=== PATIENT | female | born 1985 | race Hispanic/Latino ===

== ENCOUNTER → 2021-04-28 | Outpatient (CLI) | payer OTHER ==
[~2021-04-28] MED LIST: ISOVUE-370 76% 100ML VIAL As Ordered ONE
--- NOTE | 2021-04-28 13:05 | REP ---
INDICATION: INFERTILITY. COMPARISON: None. TECHNIQUE: Cervix was catheterized by the referring clinician who injected contrast. I performed fluoroscopy. FINDINGS: Uterine cavity is well opacified with no contour abnormality or filling defect. There is passage of contrast through both fallopian tubes. There is no evidence of hydrosalpinx. There is bilateral free intraperitoneal spillage indicating bilateral fallopian tube patency. IMPRESSION: Bilateral fallopian tube patency. Fluoroscopy time is 1.2 minutes. <Electronically signed by Dallas Miguel > 04/28/21 [id number]
== END ==
LOC: M RADPRO 11:59
PROVIDERS: ATTEND Obstetrics & Gynecology
DX: N97.9 Female infertility, unspecified (principal)
CPT/HCPCS: 58340; 74740; Q9967

== ENCOUNTER 2022-02-08 09:10 | Day surgery (SDC) | payer OTHER ==
[~2022-02-08] VITALS: Ht 157.5 cm; Wt 80.5 kg
[~2022-02-08 09:10] MED LIST changes: +ACETAMINOPHEN *IV* 1,000 MG IV ONE; -ISOVUE-370 76% 100ML VIAL As Ordered ONE; +LIDOCAINE 1% MDV 20ML VIAL SQ PRN; +LR 1,000 ML IV ONE
[2022-02-08] MEDS ORDERED: LR 1,000 ML IV SCH ×2 (09:25→14:25)
[2022-02-08 09:54] LABS: HEMATOCRIT 40.9 % (36.0-47.0); HEMOGLOBIN 13.8 g/dl (12.0-15.5)
[2022-02-08 10:18] LABS: BLOOD UREA NITROGEN 15 MG/DL (7-18); CALCIUM LEVEL 9.2 MG/DL (8.5-10.1); CARBON DIOXIDE LEVEL 25 MEQ/L (21-32); CHLORIDE LEVEL 106 MEQ/L (98-107); GLOMERULAR FILTRATION RATE > 60.0 (>60); GLUCOSE, FASTING 83 MG/DL (70-100); POTASSIUM SERUM 4.4 MEQ/L (3.5-5.1); SODIUM LEVEL 139 MEQ/L (136-145)
[2022-02-08 10:23] LABS: HCG, SERUM QUALITATIVE NEGATIVE (NEGATIVE)
[2022-02-08] MEDS ORDERED: propofoL 200 MG/20 ML VIAL As Ordered ONE (12:48)
[2022-02-08] MEDS ORDERED: SUGAMMADEX SODIUM 500 MG/5 ML VIAL (BRIDION) As Ordered ONE (12:49)
[2022-02-08] MEDS ORDERED: KETOROLAC 60MG 2ML VIAL As Ordered ONE (12:49)
[2022-02-08] MEDS ORDERED: ACETAMINOPHEN 1000MG 100ML IV BTL (OFIRMEV) (J0131 PER 10MG) As Ordered ONE (12:49)
[2022-02-08] MEDS ORDERED: LIDOCAINE 2% 100MG/5ML SDV (FOR ANES.) As Ordered ONE (12:49)
[2022-02-08] MEDS ORDERED: dexameTHASONE 4 MG/ML 1ML VIAL (J1100 PER 1MG) As Ordered ONE (12:49)
[2022-02-08] MEDS ORDERED: METOCLOPRAMIDE INJ 10MG/2ML VIAL (J2765 PER 1) As Ordered ONE (12:49)
[2022-02-08] MEDS ORDERED: ROCURONIUM BROMIDE 50 MG/5 ML VIAL As Ordered ONE (12:49)
[2022-02-08] MEDS ORDERED: ONDANSETRON 4MG/2ML VIAL As Ordered ONE (12:49)
[2022-02-08] MEDS ORDERED: fentaNYL 100 MCG/2 ML INJECTION As Ordered ONE ×2 (12:55→13:59)
[2022-02-08] MEDS ORDERED: MIDAZOLAM INJ 2MG/2ML VIAL (J2250 PER 1MG) As Ordered ONE ×2 (12:55→13:18)
[2022-02-08] MEDS ORDERED: LIDOCAINE 1% SDV 30ML VIAL As Ordered ONE (13:20)
[2022-02-08] MEDS ORDERED: SILVER NITRATE APPLICATOR (1 = QTY 10) As Ordered ONE (13:20)
[2022-02-08] MEDS ORDERED: ONDANSETRON 4MG/2ML VIAL IV PRN (14:25)
[2022-02-08] MEDS ORDERED: oxyCODONE 5MG TAB PO PRN (14:25)
[2022-02-08] MEDS ORDERED: MORPHINE 2 MG/ML 1ML VIAL IV PRN (14:25)
[2022-02-08] MEDS ORDERED: fentaNYL 100 MCG/2 ML INJECTION IV PRN (14:25)
[2022-02-08 16:00] VITALS: BP 135/75
== END 2022-02-08 16:17 | disposition home or self-care (01) ==
LOC: M SDC 09:10
PROVIDERS: ATTEND Obstetrics & Gynecology
DX: D25.0 Submucous leiomyoma of uterus (principal); N97.9 Female infertility, unspecified
CPT/HCPCS: 36415; 58558; 80048; 84703; 85014; 85018; 86850; 86900; 86901; 88305; J0131; J1100; J1885; J2250; J2270; J2405; J2765; J3010

== ENCOUNTER → 2022-08-26 | Outpatient (CLI) | payer OTHER | LOC: M WHC 13:37 | PROVIDERS: ATTEND Registered Nurse | DX: Z34.92 Encounter for supervision of normal pregnancy, unspecified, second trimester (principal); Z3A.19 19 weeks gestation of pregnancy ==

== ENCOUNTER 2022-12-29 11:26 | Inpatient (IN) | payer OTHER ==
[~2022-12-29] VITALS: Ht 157.5 cm; Wt 94.0 kg
[2022-12-29] VITALS (9 sets, daily range): BP systolic 116–144; BP diastolic 78–92
[2022-12-29] MEDS ORDERED: ASPI81CH33 PO (11:57)
[2022-12-29] MEDS ORDERED: PRENTAB9 PO (11:57)
[2022-12-29] MEDS ORDERED: LABE200T5 PO (11:58)
[2022-12-29] MEDS ORDERED: LIDOCAINE 1% MDV 20ML VIAL INFIL PRN (12:35)
[2022-12-29] MEDS ORDERED: CARBOPROST TROMETHAMINE 250 MCG/ML AMP IM PRN (12:35)
[2022-12-29] MEDS ORDERED: TRANEXAMIC ACID INJection 1,000 MG in NS 100 ML IV PRN (12:35)
[2022-12-29] MEDS ORDERED: METHYLERGONOVINE MALEATE 0.2MG/ML 1ML VIAL IM PRN (12:35)
[2022-12-29] MEDS ORDERED: OXYTOCIN DRIP 30 UNITS in IV 1 EA IV PRN (12:35)
[2022-12-29] MEDS ORDERED: HOME MED LIST COMPLETE! XX SCH (12:50)
[2022-12-29 14:04] LABS: HEMATOCRIT 37.1 % (36.0-47.0); MEAN CORPUSCULAR HEMOGLOBIN 27.5 pg (27.0-33.0); MEAN CORPUSCULAR HGB CONC 32.3 g/dl (32.0-36.5); MEAN CORPUSCULAR VOLUME 84.9 fl (80.0-96.0); PLATELET COUNT, AUTOMATED 187 10^3/uL (150-450); RED BLOOD COUNT 4.37 10^6/uL (4.00-5.40); WHITE BLOOD COUNT 10.1 10^3/uL (4.0-10.0)
[2022-12-29] MEDS: miSOPROStol 50MCG 1/2 TABLET PO SCH ×2 (17:47→21:56)
[2022-12-29] MEDS ORDERED: LABETALOL 200 MG TAB PO SCH (20:00)
[2022-12-29] MEDS: LABETALOL 200 MG TAB PO SCH (20:09)
[2022-12-29] MEDS ORDERED: PROMETHAZINE 25MG/ML 1ML VIAL IV PRN (20:40)
[2022-12-29] MEDS ORDERED: NALBUPHINE HCL 10 MG/ML 1ML AMP IV PRN (20:40)
[2022-12-30] VITALS (56 sets, daily range): BP systolic 109–158; BP diastolic 58–103
[2022-12-30] MEDS: miSOPROStol 50MCG 1/2 TABLET PO SCH ×2 (02:03→06:00)
[2022-12-30] MEDS ORDERED: NALBUPHINE HCL 10 MG/ML 1ML AMP IV PRN (03:35)
[2022-12-30] MEDS ORDERED: PROMETHAZINE 25MG/ML 1ML VIAL IV ONE (03:35)
[2022-12-30] MEDS ORDERED: OXYTOCIN DRIP 30 UNITS in IV 1 EA IV SCH (08:05)
[2022-12-30] MEDS ORDERED: LACTATED RINGER'S 1000 ML IV STA (11:23)
[2022-12-30] MEDS ORDERED: LR 500 ML IV PRN (14:00)
[2022-12-30] MEDS ORDERED: NALOXONE INJ 0.4MG/1ML VIAL IV PRN (14:00)
[2022-12-30] MEDS ORDERED: EPIDURAL/PCA KEYS XX PRN (14:00)
[2022-12-30] MEDS ORDERED: ePHEDrine SULFATE 25 MG/5 ML(5MG/ML) SYRINGE IVP PRN (14:00)
[2022-12-30] MEDS ORDERED: ONDANSETRON 4MG 2ML VIAL IV PRN (14:00)
[2022-12-30] MEDS ORDERED: diphenhydrAMINE 50MG/ML VIAL IV PRN (14:00)
[2022-12-30] MEDS: FENTANYL/ROPIVACAINE/NACL BAG 100 ML EPIDURAL SCH ×2 (14:37→23:00)
[2022-12-31] VITALS (9 sets, daily range): BP systolic 107–164; BP diastolic 57–79
[2022-12-31] MEDS ORDERED: DIBUCAINE 1% OINTMENT 30GM TOP PRN (01:45)
[2022-12-31] MEDS ORDERED: ANUSOL HC CREAM 30GM TOP PRN (01:45)
[2022-12-31] MEDS ORDERED: DOCUSATE SODIUM 100MG CAPSULE PO PRN (01:45)
[2022-12-31] MEDS ORDERED: RHOGAM 300MCG (1500IU) INJ IM SCH (01:45)
[2022-12-31 01:52] LABS: CORD GAS HCO3 V 20.9 MMOL/L; CORD GAS O2 SAT V 72.7 %; CORD GAS PCO2 V 34.3 mmHg; CORD GAS PH V 7.402 UNITS; CORD GAS SBC V 21.4 MMOL/L; CORD GAS TCO2 V 21.9 MMOL/L
[2022-12-31 01:53] LABS: CORD GAS ABE A -5.2; CORD GAS HCO3 A 19.7 MMOL/L; CORD GAS O2 SAT A 42.6 %; CORD GAS PCO2 A 36.6 mmHg; CORD GAS PH A 7.348 UNITS; CORD GAS PO2 A 18.9 mmHg; CORD GAS SBC A 18.9 MMOL/L; CORD GAS TCO2 A 20.8 MMOL/L
[2022-12-31] MEDS: LABETALOL 200 MG TAB PO SCH ×2 (02:29→20:16)
[2022-12-31] MEDS: IBUPROFEN 800 MG TAB PO PRN ×2 (04:26→20:15)
[2022-12-31] MEDS: ACETAMINOPHEN 500 MG TAB PO PRN ×2 (04:27→14:15)
[2022-12-31] MEDS: PRENATAL VITAMINS CHEWABLE TABLET PO SCH (09:18)
[2023-01-01] MEDS: IBUPROFEN 800 MG TAB PO PRN (05:16)
[2023-01-01 06:00] VITALS: BP 100/62
[2023-01-01] MEDS: PRENATAL VITAMINS CHEWABLE TABLET PO SCH (08:35)
[2023-01-01] MEDS ORDERED: COLA100C5 PO (09:23)
[2023-01-01] MEDS ORDERED: ACET-683 PO (09:23)
[2023-01-01] MEDS ORDERED: IBUP80TA PO (09:23)
[2023-01-02] MEDS ORDERED: MEASLES,MUMPS,RUBELLA VACCINE INJ (MMR-II) SC.IMMUN ONE (09:00)
== END 2023-01-01 13:30 | disposition home or self-care (01) | DRG 807 ==
LOC: M LDI 11:26 → M OBS 12-31 03:47
PROVIDERS: ADMIT Registered Nurse; ATTEND Registered Nurse
PROC: 3E0P7VZ Introduction of Hormone into Female Reproductive, Via Natural or Artificial Opening (ICD-10-PCS; 2022-12-29)
PROC: 3E033VJ Introduction of Other Hormone into Peripheral Vein, Percutaneous Approach (ICD-10-PCS; 2022-12-30)
PROC: 10E0XZZ Delivery of Products of Conception, External Approach (ICD-10-PCS; principal; 2022-12-31)
DX: O10.92 Unspecified pre-existing hypertension complicating childbirth (principal); Z37.0 Single live birth; O09.523 Supervision of elderly multigravida, third trimester; Z3A.37 37 weeks gestation of pregnancy; Z79.899 Other long term (current) drug therapy; O09.299 Supervision of pregnancy with other poor reproductive or obstetric history, unspecified trimester

== ENCOUNTER 2023-02-24 22:27 | Emergency (ER) | payer OTHER ==
[~2023-02-24] VITALS: Ht 157.5 cm; Wt 84.7 kg
[2023-02-24 22:27] VITALS: BP 168/89; TEMP 98.1; O2SAT 97
[~2023-02-24 22:27] MED LIST changes: +ACET-683 PO; -ACETAMINOPHEN *IV* 1,000 MG IV ONE; +ASPI81CH33 PO; +COLA100C5 PO; +IBUP80TA PO; +LABE200T5 PO; -LIDOCAINE 1% MDV 20ML VIAL SQ PRN; -LR 1,000 ML IV ONE; +PRENTAB9 PO
[2023-02-24] MEDS ORDERED: ASPI81TA26 PO (22:40)
== END 2023-02-25 01:35 | disposition left against medical advice (07) ==
LOC: M ED 22:27
DX: Z53.21 Procedure and treatment not carried out due to patient leaving prior to being seen by health care provider (principal)

== ENCOUNTER → 2023-04-28 | Outpatient (CLI) | payer OTHER ==
[~2023-04-28] MED LIST changes: +ASPI81TA26 PO
== END ==
LOC: M PLAIMG 13:05
PROVIDERS: ATTEND Physician Assistant
DX: R07.9 Chest pain, unspecified (principal)

== ENCOUNTER 2024-08-15 16:34 | Outpatient (CLI) | payer OTHER ==
[~2024-08-15] VITALS: Ht 157.5 cm; Wt 100.0 kg
[2024-08-15] MEDS ORDERED: HOME MED LIST COMPLETE! XX SCH (16:45)
[2024-08-15 16:47] VITALS: BP 130/81
== END 2024-08-15 17:13 | disposition home or self-care (01) ==
LOC: M LDO 16:34
PROVIDERS: ATTEND Obstetrics & Gynecology
DX: O36.8339 Maternal care for abnormalities of the fetal heart rate or rhythm, third trimester, other fetus (principal); O09.523 Supervision of elderly multigravida, third trimester; O24.410 Gestational diabetes mellitus in pregnancy, diet controlled; O09.813 Supervision of pregnancy resulting from assisted reproductive technology, third trimester; O09.213 Supervision of pregnancy with history of pre-term labor, third trimester; O26.23 Pregnancy care for patient with recurrent pregnancy loss, third trimester; Z3A.34 34 weeks gestation of pregnancy
CPT/HCPCS: 59025; G0463

== ENCOUNTER → 2024-08-30 | Outpatient (REF) | payer OTHER | LOC: M SFHCWAGY 12:58 | PROVIDERS: ATTEND Obstetrics & Gynecology | DX: O26.23 Pregnancy care for patient with recurrent pregnancy loss, third trimester (principal); O09.813 Supervision of pregnancy resulting from assisted reproductive technology, third trimester; O09.523 Supervision of elderly multigravida, third trimester; O24.410 Gestational diabetes mellitus in pregnancy, diet controlled; Z3A.36 36 weeks gestation of pregnancy ==

== ENCOUNTER → 2024-09-04 | Outpatient (CLI) | payer OTHER | LOC: M RAD 07:55 | PROVIDERS: ATTEND Obstetrics & Gynecology | DX: O24.419 Gestational diabetes mellitus in pregnancy, unspecified control (principal); Z3A.36 36 weeks gestation of pregnancy ==

== ENCOUNTER 2024-09-14 08:16 | Inpatient (IN) | payer OTHER ==
[~2024-09-14] VITALS: Ht 157.5 cm; Wt 100.9 kg
[2024-09-14] MEDS ORDERED: OMEP-173 PO (08:33)
[2024-09-14] MEDS ORDERED: HOME MED LIST COMPLETE! XX SCH (08:35)
[2024-09-14 08:49] VITALS: BP 143/91
[2024-09-14 09:05] VITALS: BP 120/76
[2024-09-14 09:19] VITALS: BP 125/73
[2024-09-14 09:36] LABS: HEMATOCRIT 35.2 % (36.0-47.0); HEMOGLOBIN 11.7 g/dl (12.0-15.5); MEAN CORPUSCULAR HEMOGLOBIN 27.8 pg (27.0-33.0); MEAN CORPUSCULAR HGB CONC 33.2 g/dl (32.0-36.5); MEAN CORPUSCULAR VOLUME 83.6 fl (80.0-96.0); PLATELET COUNT, AUTOMATED 153 10^3/uL (150-450); RED BLOOD COUNT 4.21 10^6/uL (4.00-5.40); WHITE BLOOD COUNT 9.3 10^3/uL (4.0-10.0)
[2024-09-14] MEDS ORDERED: LACTATED RINGER'S 1000 ML IV STA (10:36)
[2024-09-14] MEDS ORDERED: OXYTOCIN DRIP 30 UNITS in IV 1 EA IV PRN (10:40)
[2024-09-14] MEDS ORDERED: METHYLERGONOVINE MALEATE 0.2MG/ML 1ML VIAL IM PRN (10:40)
[2024-09-14] MEDS ORDERED: LR 1,000 ML IV SCH (10:40)
[2024-09-14] MEDS ORDERED: CARBOPROST TROMETHAMINE 250 MCG/ML AMP IM PRN (10:40)
[2024-09-14] MEDS ORDERED: LIDOCAINE 1% MDV 20ML VIAL INFIL PRN (10:40)
[2024-09-14] MEDS ORDERED: TRANEXAMIC ACID INJection 1,000 MG in NS 100 ML IV PRN (10:40)
[2024-09-14] MEDS: miSOPROStol 50MCG 1/2 TABLET PO SCH (11:07)
[2024-09-14 11:09] VITALS: BP 133/76
[2024-09-14 11:41] LABS: HEPATITIS C VIRUS ABY INDEX < 0.02 INDEX (<0.8)
[2024-09-14 15:25] VITALS: BP 129/78
[2024-09-14 19:28] VITALS: BP 144/81
[2024-09-14] MEDS ORDERED: OXYTOCIN DRIP 30 UNITS in IV 1 EA IV SCH (23:25)
[2024-09-15] VITALS (19 sets, daily range): BP systolic 97–160; BP diastolic 62–88; O2SAT 97
[2024-09-15] MEDS ORDERED: LR 500 ML IV PRN (00:35)
[2024-09-15] MEDS ORDERED: diphenhydrAMINE 50MG/ML VIAL IV PRN (00:35)
[2024-09-15] MEDS ORDERED: NALOXONE INJ 0.4MG/1ML VIAL IV PRN (00:35)
[2024-09-15] MEDS ORDERED: ePHEDrine SULFATE 25 MG/5 ML(5MG/ML) SYRINGE IVP PRN (00:35)
[2024-09-15] MEDS ORDERED: ONDANSETRON 4MG 2ML VIAL IV PRN ×2 (00:35→05:30)
[2024-09-15] MEDS ORDERED: EPIDURAL/PCA KEYS XX PRN (00:35)
[2024-09-15] MEDS: FENTANYL/ROPIVACAINE/NACL BAG 100 ML EPIDURAL SCH (01:20)
[2024-09-15 05:25] LABS: CORD GAS ABE V -10.6; CORD GAS O2 SAT V 65.7 %; CORD GAS PCO2 V 43.7 mmHg; CORD GAS PH V 7.208 UNITS; CORD GAS PO2 V 31.5 mmHg; CORD GAS SBC V 15.6 MMOL/L; CORD GAS TCO2 V 18.3 MMOL/L
[2024-09-15 05:27] LABS: CORD GAS HCO3 A 18.4 MMOL/L; CORD GAS O2 SAT A 57.6 %; CORD GAS PCO2 A 49.6 mmHg; CORD GAS PH A 7.187 UNITS; CORD GAS PO2 A 27.1 mmHg; CORD GAS SBC A 15.8 MMOL/L; CORD GAS TCO2 A 19.9 MMOL/L
[2024-09-15] MEDS ORDERED: ACETAMINOPHEN 325 MG TAB PO PRN (05:30)
[2024-09-15] MEDS ORDERED: CALCIUM CARBONATE 500 MG CHEW U/D PO PRN (05:30)
[2024-09-15] MEDS ORDERED: DOCUSATE SODIUM 100MG CAPSULE PO PRN (05:30)
[2024-09-15] MEDS ORDERED: DIBUCAINE 1% OINTMENT 30GM TOP PRN (05:30)
[2024-09-15] MEDS ORDERED: LR 1,000 ML IV SCH (05:30)
[2024-09-15] MEDS ORDERED: ANUSOL HC CREAM 30GM TOP PRN (05:30)
[2024-09-15] MEDS ORDERED: RHOGAM 300MCG (1500IU) INJ IM SCH (05:30)
[2024-09-15] MEDS ORDERED: IBUPROFEN 600MG TAB PO PRN (05:30)
[2024-09-15] MEDS: OXYTOCIN DRIP 30 UNITS in IV 1 EA IV SCH (05:30)
[2024-09-15] MEDS: ACETAMINOPHEN 500 MG TAB PO PRN (06:37)
[2024-09-15] MEDS: PRENATAL VITAMINS CHEWABLE TABLET PO SCH (09:17)
[2024-09-15] MEDS: IBUPROFEN 800 MG TAB PO PRN (09:17)
[2024-09-15] MEDS: FIORICET TAB PO PRN (20:49)
[2024-09-16 06:00] VITALS: BP 120/70; O2SAT 98
[2024-09-16] MEDS ORDERED: IBUP80TA PO (12:33)
[2024-09-16] MEDS ORDERED: BUTA-198 PO ×2 (12:33→13:35)
[2024-09-17] MEDS ORDERED: MEASLES,MUMPS,RUBELLA VACCINE INJ (MMR-II) SC.IMMUN ONE (09:00)
== END 2024-09-16 13:55 | disposition home or self-care (01) | DRG 806 ==
LOC: M LDI 08:16 → M OBS 09-15 07:45
PROVIDERS: ADMIT Obstetrics & Gynecology; ATTEND Obstetrics & Gynecology
PROC: 3E033VJ Introduction of Other Hormone into Peripheral Vein, Percutaneous Approach (ICD-10-PCS; 2024-09-14)
PROC: 3E0P7GC Introduction of Other Therapeutic Substance into Female Reproductive, Via Natural or Artificial Opening (ICD-10-PCS; 2024-09-14)
PROC: 10E0XZZ Delivery of Products of Conception, External Approach (ICD-10-PCS; principal; 2024-09-15)
DX: O24.420 Gestational diabetes mellitus in childbirth, diet controlled (principal); Z37.0 Single live birth; O10.92 Unspecified pre-existing hypertension complicating childbirth; Z3A.38 38 weeks gestation of pregnancy; Z87.59 Personal history of other complications of pregnancy, childbirth and the puerperium; O09.523 Supervision of elderly multigravida, third trimester; O09.819 Supervision of pregnancy resulting from assisted reproductive technology, unspecified trimester; Z87.51 Personal history of pre-term labor; Z79.82 Long term (current) use of aspirin; Z79.899 Other long term (current) drug therapy; O89.4 Spinal and epidural anesthesia-induced headache during the puerperium